=== PATIENT | female | born 1965 | race Asian ===

== ENCOUNTER 2022-11-01 07:01 | Outpatient (CLI) | payer OTHER ==
--- NOTE | 2022-11-01 11:11 | Ultrasound Report ---
PROCEDURE: Pelvic w/Transvaginal INDICATIONS: POSTMENOPAUSAL BLEEDING TECHNIQUE: Real-time scanning was performed of the pelvic organs, with image documentation. Additional endovagi nal scanning was necessary due to incomplete visualization of the adnexal and endometrial structures by transabdominal scanning. COMPARISON: None. FINDINGS: Uterus: Uterus is retroverted and normal in size at 7.5 x 5 x 3.7 cm. The myometrium is homogeneous . The endometrium measures 5 mm in combined thickness. No fibroids seen. Ovaries: The right ovary measures 1.7 x 1.3 x 0.9 cm, with a calculated ovarian volume of 1 cc. Left ovary is not seen. Less than 12 right ovarian follicles. No adnexal masses are seen. Other: No pathologic free abdominal or pelvic fluid. IMPRESSION: 1. Endometrium measures 5 mm. 2. No fibroids seen. 3. Right ovary is unremarkable. Left ovary is not seen. Reviewed by: Jose Ramon Ayala MD on 11/01/2022 11:09 AM PST Approved by: Jose Ramon Ayala MD on 11/01/2022 11:09 AM PST Station ID: [id number]
== END 2022-11-01 07:02 | disposition home or self-care (01) ==
LOC: DI 07:01
PROVIDERS: ATTEND Obstetrics & Gynecology
DX: N95.0 Postmenopausal bleeding (principal)